=== PATIENT | male | born 1950 | race Caucasian/White ===

== ENCOUNTER 2022-01-10 00:37 | Day surgery (SDC) | payer MEDICARE, SELFPAY ==
[2022-01-07 15:12] VITALS: BMI 23.8
--- NOTE | 2022-01-07 15:34 | PC.NURSE ---
Report to the Outpatient Waiting Room, entrance under the green pavilion located off [facility], at time ___729____ on date __01/10/22 . OR Time: ___929 . - You and your visitor will be asked a series of questions to screen for COVID 19 for your protection. - Only one visitor is allowed at this time. - The patient visitor is requested to leave or wait in car when not with patient. - A mask is required within the hospital. Patients may have clear liquids (water, carbonated beverages, clear teas, apple juice) until 3 hours prior to surgery (0630 AM) with a maximum of 20 ounces. - No food from midnight until time of surgery - Infants may have breast milk until 4 hours before surgery, infant formula 6 hours prior to surgery. - Children will be allowed to drink immediately following surgery. If applicable, please bring a bottle or sippy cup to assist with drinking. Juice, water, soda, and popsicles are readily available. For infants on formula, please bring formula the day of surgery. Pacifiers are allowed. Take the following medications with a SIP of water the morning of surgery: __NONE_ Medications to discontinue per physician _PT STATES STOPPING MELOXICAM SEVERAL DAYS AGO , VITAMINS AND SUPPLEMENTS OF TODAY__ Date to take last dose Please no make-up, nail armenian, hairspray, perfume, deodorant, or body powder the day of surgery. No jewelry (including any body piercings) or valuables the day of surgery, leave them at home. Please take a shower or bath the night before, or the morning of, surgery with an antibacterial soap. Wear comfortable, loose fitting clothing. Children are encouraged to wear pajamas. - Jewelry must be removed prior to entering the operating room. Rings and piercings that are not removed may be cut off. - The hospital will not accept responsibility for valuables. - Please leave all valuables, including medications, at home the day of surgery. If you are going home after surgery, a licensed local intermodal truck driver must drive you home. - NO public transportation without another adult. - We recommend that an adult stay with you for 24 hours following discharge. - We also recommend that you do not drive, make important decision, drink alcoholic beverages, or take any drugs that were not prescribed by your health care provider for at least 24 hours after your discharge time. For Pediatric surgeries, we recommend two adults accompany the child home (only one inside the building at this time). Follow any additional instructions given to you from your surgeon. If you or anyone in your household have experienced Covid symptoms in the past week, please notify your surgeon or the nurse liaison at the phone number below for possible testing. Telephone instructions given to ___PT and asked if any additional questions and then verbalized understanding. Patient advised to call surgeon office or pre surgery nurse liaison [phone] if any additional questions.
--- NOTE | 2022-01-09 10:47 | WPDANESEPPF ---
Anes - Initial Pre Proc Eval Procedure: Operation Date: 01/10/22 09:30 Proposed Procedures p Right Extracorporeal Shock Wave Lithotripsy - Dominick Pike MD s Cystoscopy, Right Ureteroscopy, Right Stent Placement - Dominick Pike MD <Francisco Brewer MD - Last Filed: 01/09/22 10:49> Date/Time: 01/09/22 10:47 <Francisco Brewer MD - Last Filed: 01/09/22 10:49> Surgeon: Dominick Pike MD <Francisco Brewer MD - Last Filed: 01/09/22 10:49> Pre Op Diagnosis: Right ureteral stone <Francisco Brewer MD - Last Filed: 01/09/22 10:49> Patient Data Age: 71 Gender: M Height: 1.83 m Weight: 79.54 kg <Francisco Brewer MD - Last Filed: 01/09/22 10:49> Allergies Allergy/AdvReac Type Severity Reaction Status Date / Time No Known Allergies Allergy Mild Unverified 01/07/22 15:06 <Francisco Brewer MD - Last Filed: 01/09/22 10:49> Home Medications Medication Instructions Recorded Confirmed Type amitriptyline 50 mg tablet 50 mg 01/07/22 01/07/22 History cholecalciferol (vitamin D3) 50 50 mcg PO QAM 01/07/22 01/07/22 History mcg (2,000 unit) tablet cyanocobalamin (vitamin B-12) 1,000 mcg QA 01/07/22 01/07/22 History famotidine 20 mg tablet 20 mg QA 01/07/22 01/07/22 History lisinopril 5 mg tablet 10 mg QA 01/07/22 01/07/22 History meloxicam 15 mg tablet 15 mg QA 01/07/22 01/07/22 History omega 8-qkp-fgw-fish oil 1,000 mg 1 cap PO QAM 01/07/22 01/07/22 History (120 mg-180 mg) capsule (Fish Oil) tamsulosin 0.4 mg capsule 0.4 mg PO HS 01/07/22 01/07/22 History <Francisco Brewer MD - Last Filed: 01/09/22 10:49> Patient hx anesthesia problems: none <Dennis Holladn DO - Last Filed: 01/10/22 08:37> Family hx anesthesia problems: none <Dennis Holland DO - Last Filed: 01/10/22 08:37> Results Review: All pre-operative results and documents have been reviewed as part of the pre-operative evaluation. <Francisco Brewer MD - Last Filed: 01/09/22 10:49> [facility] Past Medical History Medical History: Medical History (Updated 01/09/22 @ 10:48 by Francisco Brewer MD) Arthritis BPH (benign prostatic hyperplasia) Chronic GERD HTN (hypertension) Ureterolithiasis <Francisco Brewer MD - Last Filed: 01/09/22 10:49> Social History Social History: Social History Smoking status: Never smoker Second hand tobacco smoke exposure: No Alcohol intake: current Drinks per week: 1 Substance use: never Substance use type: does not use Living arrangements: alone Spiritual care concerns: No <Francisco Brewer MD - Last Filed: 01/09/22 10:49> Anes - Eval Final PreProcedure Day of Procedure 01/09/22 10:47 <Francisco Brewer MD - Last Filed: 01/09/22 10:49> Patient weight: normal <Francisco Brewer MD - Last Filed: 01/09/22 10:49> Heart: regular rate and rhythm <Francisco Brewer MD - Last Filed: 01/09/22 10:49> Lungs: clear to auscultation and normal air movement <Francisco Brewer MD - Last Filed: 01/09/22 10:49> Airway: Mallampati scale class II <Francisco Brewer MD - Last Filed: 01/09/22 10:49> Neurological: alert and oriented <Francisco Brewer MD - Last Filed: 01/09/22 10:49> Last oral intake: >/= 8 hours <Francisco Brewer MD - Last Filed: 01/09/22 10:49> ASA classification: II <Francisco Brewer MD - Last Filed: 01/09/22 10:49> Emergent: no <Francisco Brewer MD - Last Filed: 01/09/22 10:49> Anesthetic plan: proceed <Francisco Brewer MD - Last Filed: 01/09/22 10:49> Anesthesia type and monitoring: general LMA <Francisco Brewer MD - Last Filed: 01/09/22 10:49> Results Review: All pre-operative results and documents have been reviewed as part of the pre-operative evaluation. <Francisco Brewer MD - Last Filed: 01/09/22 10:49> Informed Consent: The patient's anesthetic plan and its attendant risks and benefits wer
[2022-01-10] VITALS (7 sets, daily range): BP systolic 119–163; BP diastolic 63–82; PULSE 55–64; RESP 12–20; TEMP 36.1–36.3; O2SAT 100
--- NOTE | ~2022-01-10 | XR_ITS ---
XR abdomen/kub 1V 01/10/2022 07:30 Indication: Preop ESWL Procedure: KUB Comparison: No prior studies for comparison. Findings: There is a right internal ureteral stent in expected position. There is a stone in the righ t upper abdomen, likely the renal pelvis measuring up to 1.9 cm. Nonobstructive bowel gas pattern wit h large amount of retained fecal material in the colon. Moderate lumbar spondylosis with levoscoliosi s. Impression: 1: Large stone in the right renal pelvis measuring up to 1.9 cm. Reviewed, dictated and finalized at location A. Impression: 1: Large stone in the right renal pelvis measuring up to 1.9 cm.
--- NOTE | 2022-01-10 07:01 | WPDHPUPDATE1 ---
History and Physical Update Update Date/Time: 01/10/22 07:01 History and Physical has been reviewed, including an updated exam of the patient. There are NO changes in the patient's condition. Risks, benefits, and alternatives have been discussed and questions answered. Patient agrees to proceed with procedure.
[2022-01-10] MEDS: LACTATED RINGERS 1,000 ML 30 ML IV CONT (08:45)
[2022-01-10] MEDS: ceFAZolin 2 GM/D5W 50 ML 2 GM/50 ML BAG IVPB (09:56)
--- NOTE | 2022-01-10 10:54 | W.PM.PROC2 ---
Procedure Note - Detailed Date of Procedure 01/10/22 Pre-op Diagnosis Right ureteral and right renal stones Post-op Diagnosis Same Procedure Performed Cystoscopy, right ureteral stent removal, right ureteroscopy with stone extraction, right ureteral stent replacement and right ESWL Surgeon Dominick Pike MD Description of Procedure patient is brought the op suite was prepped draped in routine sterile fashion while in dorsal lithotomy position after the uneventful induction of a general LMA anesthetic. Cystoscopy is undertaken with 21 F rigid cystoscope. The indwelling right ureteral stent is removed. A 0.035 in glidewire was advanced into the right renal pelvis. Right ureteroscopy was undertaken with a short tapered semi-rigid ureteral scope. His 6 mm right distal ureteral stone is extracted with a [place]asta stone basket with ease. I replaced the 6 F right variable length double-J ureteral stent with proximal coil in renal pelvis and distal coil in the bladder. Shockwave was then delivered to the 2 cm right renal pelvic stone. A total of 2500 shocks were delivered at a power setting of 4. Patient tolerated the procedure well was taken recovery room good condition Pathology None sent Complications No immediate complications Condition Stable Disposition PACU
== END 2022-01-10 12:45 | disposition home or self-care (01) ==
PROVIDERS: PCP Family Medicine; Referring Provider Urology; Visit Provider Urology
PROC: (CPT 50590; principal; 2022-01-10 09:30)
PROC: (CPT 52352; 2022-01-10 09:30)
DX: N20.2 Calculus of kidney with calculus of ureter (principal); I10 Essential (primary) hypertension; N40.0 Benign prostatic hyperplasia without lower urinary tract symptoms; K21.9 Gastro-esophageal reflux disease without esophagitis
CPT/HCPCS: 52332; 50590; 74018; 82365; 88300; A9270; C1769; C1887; C1894; C2617; J0690; J1100; J2405; J2704; J7030; J7120

== ENCOUNTER 2023-04-24 13:59 | Outpatient (CLI) | payer MEDICARE, SELFPAY ==
--- NOTE | ~2023-04-24 | XR_ITS ---
XR abdomen/kub 1V 04/24/2023 14:18 Indication: Right renal stone Procedure: KUB Comparison: 01/10/2022 Findings: No renal stones identified. Interval removal of right ureteral stent. Nonobstructive bowel gas pattern with moderate colonic fecal loading. Bowel content obscures the kidneys. Moderate lumbar spondylosis. Impression: 1: No acute abdominal abnormality. Reviewed, dictated and finalized at location A. Impression: 1: No acute abdominal abnormality.
== END 2023-04-24 14:00 | disposition home or self-care (01) ==
PROVIDERS: PCP Family Medicine; Visit Provider Urology
DX: N20.0 Calculus of kidney (principal)
CPT/HCPCS: 74018